=== PATIENT | male | born 1995 | race African-American/Black ===

== ENCOUNTER 2021-07-21 12:06 | Emergency (ER) | payer MEDICAID ==
[~2021-07-21] VITALS: Ht 182.9 cm; Wt 73.0 kg
[2021-07-21 13:07] VITALS: BP 160/93
[2021-07-21] MEDS ORDERED: INSLIS SUBCUT (13:21)
== END 2021-07-21 13:47 | disposition home or self-care (01) ==
LOC: ER 12:21
DX: Z76.0 Encounter for issue of repeat prescription (principal); E10.9 Type 1 diabetes mellitus without complications; Z79.4 Long term (current) use of insulin
CPT/HCPCS: 99282; 99283